=== PATIENT | male | born 1970 | race African-American/Black ===

== ENCOUNTER 2018-11-17 01:02 | Observation (INO) | payer OTHER ==
--- NOTE | 2018-11-17 01:58 | PDOC ---
History of Present Illness - General Chief Complaint: Chest Pain Stated Complaint: CHEST PAIN, ABDOMINAL PAIN Time Seen by Provider: 11/17/18 01:57 - History of Present Illness Initial Comments: 48yo M with no significant past medical history presenting with chest pain and abdominal pain. Patient reports the chest pain started around 12 midnight while he was sitting at rest. The pain is described as sharp and nonradiating, worsening to a 10/10 and now rated 8/10. No nausea, vomiting, or diaphoresis. Denies personal or family history of RI. He also reports diffuse abdominal pain that has gone on since . Patient endorses profuse diarrhea, about 20-30 episodes yesterday. He had fried chicken from a restaurant on . Denies urinary symptoms. Had a colonoscopy about ten years ago which was normal because his father and grandfather have colon cancer. Has not taken anything for his symptoms. No fevers, but endorses chills. Past History - Past Medical History Allergies/Adverse Reactions: Allergies Allergy/AdvReac Type Severity Reaction Status Date / Time aspirin Allergy Intermediate Hives Verified 11/17/18 03:04 Home Medications: Ambulatory Orders Cephalexin [Keflex] 500 mg PO Q12H 7 Days #14 capsule 11/18/18 RX: Elviteg/Cob/Emtri/Tenof Alafen [Genvoya (Non-Formulary)] 11/18/18 RX: Latanoprost 1 drop OU HS 11/18/18 RX: Latanoprost 0.005% Eye Drops [Xalatan 0.005% Eye Drops -] 1 drop OU HS drops 11/18/18 RX: Pilocarpine 1% [Pilostat 1% -] 1 drop OU HS drops 11/18/18 - Suicide/Smoking/Psychosocial Hx Smoking History: Never smoked Have you smoked in the past 12 months: No Information on smoking cessation initiated: No Hx Alcohol Use: No Drug/Substance Use Hx: No Review of Systems - Review of Systems Comments:: Constitutional: no fever, +chills HEENT: no throat pain, no dysphagia Cardiovascular: +chest pain, no palpitations Respiratory: +cough, no shortness of breath Gastrointestinal: +abdominal pain, no nausea,+diarrhea Genitourinary: no dysuria, no frequency Musculoskeletal: no myalgia, no arthralgia Skin: no rash, no itching Neurologic: no headache, no dizziness *Physical Exam - Vital Signs Last Vital Signs Temp Pulse Resp BP Pulse Ox 98.3 F 113 H 18 148/107 H 98 11/17/18 01:10 11/17/18 01:10 11/17/18 01:10 11/17/18 01:10 11/17/18 01:10 - Physical Exam Comments: General: Awake, alert, and fully oriented, in no acute distress Head: No signs of trauma Eyes: EOMI, sclera anicteric ENT: Moist mucus membranes Neck: Normal ROM, supple Lungs: Lungs clear, Normal breath sounds Cardio: Regular rhythm, S1 and S2 present Abdomen: Tender to palpation diffusely, most focal to suprapubic area. Soft, nondistended. No guarding, no rebound, no masses Extremities: Normal range of motion, Distal pulses present SKIN: Warm, Dry, normal turgor Neurologic: Cranial nerves II through XII grossly intact. Normal speech Moderate Sedation - Procedure Monitoring Vital Signs: Procedure Monitoring Vital Signs Temperature 98.3 F 11/17/18 01:10 Pulse Rate 113 H 11/17/18 01:10 Respiratory Rate 18 11/17/18 01:10 Blood Pressure 148/107 H 11/17/18 01:10 O2 Sat by Pulse Oximetry (%) 98 11/17/18 01:10 ED Treatment Course - LABORATORY CBC & Chemistry Diagram: 11/18/18 05:00 11/18/18 05:00 Medical Decision Making - Medical Decision Making 48yo M with no significant past medical history presenting with chest pain and abdominal pain. -DDX including but not limited to ACS, MSK, PNA, PTX -DDX including but not limited to gastroenteritis, food poisoning, UTI, pancreatitis, cholecystitis, hepatitis, diverticulitis, SBO -EKG: rate 113, QTc 452, Incomplete RBBB with RSR' -No leukocytosis or anemia, AQ=[id number], Tpn negative, Cr=1.5 elevated -UA with infection, 89 WBC, 2+ LE -Patient declined rectal exam -Tachycardic, hydrating with fluids -Treating diarrhea with flagyl and UTI with Ceftriaxone -Fluid hydration with 2L NS 11/17/18 06:12 -Patient endorses improvement in chest pain, now 0/10. No episodes of diarrhea while in the ED -Patient signed out to Dr. Asher 11/17/18 07:38 *DC/Admit/Observation/Transfer Diagnosis at time of Disposition: Chest pain, atypical, UTI (urinary tract infection), Gastroenteritis and colitis, viral - Discharge Dispostion Condition at time of disposition: Stable Decision to Admit order: Yes - Prescriptions - Referrals - Patient Instructions - Post Discharge Activity
[2018-11-17] MEDS ORDERED: ACETAMINOPHEN 1000 MG/100 ML VIAL (NON FORMULARY) IVPB ONE (02:47)
[2018-11-17] MEDS ORDERED: SODIUM CHLORIDE 1,000 ML IV STA ×2 (02:48→05:05)
[2018-11-17] MEDS ORDERED: MAG HYDROX/AL HYDROX/SIMETH 30 ML UNIT-DOSE CUP PO ONE (02:48)
[2018-11-17] MEDS ORDERED: FAMOTIDINE 20 MG/50 ML IVPB 20 MG/50 ML MG IVPB ONE (02:48)
[2018-11-17 03:06] LABS: BASO % 0.4 % (0-2.0); EOS % 0.6 % (0-4.5); HEMATOCRIT 36.3 % (32.4-45.2); HEMOGLOBIN 12.4 GM/dL (10.7-15.3); LYMPH % 18.3 % (8-40); MCH 30.6 pg (25.7-33.7); MEAN CELL VOLUME 89.8 fl (80-96); MEAN PLT VOLUME 7.8 fl (7.5-11.1); MONO % 8.7 % (3.8-10.2); PLATELET COUNT 193 K/MM3 (134-434); RBC 4.05 M/mm3 (3.60-5.2); RDW 14.1 % (11.6-15.6); WHITE BLOOD COUNT 6.1 K/mm3 (4.0-10.0)
--- NOTE | 2018-11-17 03:33 | PDOC ---
Attending Attestation - Resident Resident Name: PrincessRaina - ED Attending Attestation I have performed the following: I have examined & evaluated the patient, The case was reviewed & discussed with the resident, I agree w/resident's findings & plan - HPI HPI: 11/17/18 03:33 Pt comes with chest pain since midnight tonight; he has been having abd pain and diarrhea since thurs. when he ate [employer] and immediately felt ill, followed by diarrhea and abd pain. Pt never lost the abd pain and diarrhea. He has no fever and no chills. 11/17/18 03:51 Pt has CPK of 1278. 1st trop is negative He is being hydrated. But he will be admitted for his chest pain to the telemetry unit - Physicial Exam PE: 11/17/18 03:34 Normal exam. Agree with resident exam. - Medical Decision Making 11/17/18 03:35 Pt will have cardiac labs. 11/17/18 03:[address] abd pelvis will be sent. CXR pending. EKG is tachycardic. 11/17/18 04:27 Pt has a nitrite positive urine. He will be treated with ceftriaxone for the UTI ; given a dose of flagyl for the food poisoning and diarrhea 11/17/18 04:53 Pt will be admitted to the tele unit. 11/17/18 06:49 Pt not admitted by the night team, as they were busy; will be signed out to the day ER docs, who will sign out to the day hospitalists. There are no tele beds in house. 11/17/18 06:55 Pt has Chest pain; needs monitoring; diarrhea x 4 days with RHABDOMYOLYSIS; UTI ; Abdominal pain; No PO intake. He requires admission
[2018-11-17 03:39] LABS: ALBUMIN 3.8 g/dl (3.4-5.0); ALK PHOS 85 U/L (45-117); ANION GAP 8 MMOL/L (8-16); BILIRUBIN,TOTAL 0.6 mg/dL (0.2-1); BLOOD UREA NITROGEN 16 mg/dL (7-18); CALCIUM 8.7 mg/dL (8.5-10.1); CHLORIDE 103 mmol/L (98-107); CO2 27 mmol/L (21-32); CREATININE 1.5 mg/dL (0.55-1.3); GLUCOSE,RANDOM 105 mg/dL (74-106); LIPASE 135 U/L (73-393); POTASSIUM 3.9 mmol/L (3.5-5.1); SGOT/AST 71 U/L (15-37); SGPT/ALT 46 U/L (13-61); SODIUM 138 mmol/L (136-145); TOT PROT 7.4 g/dl (6.4-8.2)
[2018-11-17 03:57] LABS: URINE APPEARANCE SLCLOUDY; URINE BILIRUBIN NEGATIVE (<2.0 mg/dL); URINE COLOR YELLOW; URINE GLUCOSE (UA) NEGATIVE (NEGATIVE); URINE KETONE NEGATIVE (NEGATIVE); URINE LEUK ESTERASE 2+ (NEGATIVE); URINE NITRITE POSITIVE (NEGATIVE); URINE PROTEIN 2+ (NEGATIVE); URINE UROBILINOGEN NEGATIVE mg/dL (0.2-1.0)
[2018-11-17 04:02] LABS: EPI CELLS RARE /HPF (FEW); URINE BACTERIA MANY /hpf (NONE SEEN); URINE HYALINE CAST 1 /lpf; URINE MUCUS RARE
[2018-11-17] MEDS ORDERED: CEFTRIAXONE 1 GM in DEXTROSE 5%-WATER - 50 ML IVPB ONE (04:27)
[2018-11-17] MEDS ORDERED: CEFTRIAXONE 1 GM/50 ML BAG ONE (05:00)
--- NOTE | 2018-11-17 08:40 | EKG ---
Test Reason : Blood Pressure : / mmHG Vent. Rate : 113 BPM Atrial Rate : 113 BPM P-R Int : 166 ms QRS Dur : 096 ms QT Int : 330 ms P-R-T Axes : 073 013 022 degrees QTc Int : 452 ms SINUS TACHYCARDIA POSSIBLE LEFT ATRIAL ENLARGEMENT INCOMPLETE RIGHT BUNDLE BRANCH BLOCK BORDERLINE ECG NO PREVIOUS ECGS AVAILABLE Confirmed by ELIOT CARUSO MD ([id number]) on 11/17/2018 8:40:00 AM Referred By: Confirmed By:ELIOT CARUSO MD
[2018-11-17] MEDS ORDERED: SODIUM CHLORIDE 1,000 ML IV SCH (10:45)
--- NOTE | 2018-11-17 10:56 | HP ---
CHIEF COMPLAINT: Chest pain, diarrhea PCP: Dr. Froy Rolon HISTORY OF PRESENT ILLNESS: Patient is a 48 year old male with History of HIV (on Genvoya, last vital load in 2018 was undetectable), glaucom,a prior UTI presents with complaint of chest pain. Describes chest pain as sharp, localized to middle chest, nonradiating. Began with sudden onset while he was resting around 10PM last night, and resolved spontaneously upon presentation to ED today. He endorses palpitations associated with the chest pain. He denies associated shortness of breath, or worsening of chest pain with deep breaths. Patient does not endorse palliative or provocative features. He denies having similar symptoms in the past. Patient also endorses diarreha that has been ongoing since . He notes eating fried chicken ([facility]) and has been experiencing 10+ liquid brown bowel movements daily for the past three days. Today he notes the diarrhea is slightly improving with soft stools that are less liquid. Denies any jimmie red blood within the stool. He endorses chills, without subjective fever. Denies nausea, or vomiting. He is currently eating well without diminished appetite. He denies recent trauma, fall, loss of conciousness, strenuous exercise, steroid use. ER course was notable for: (1) EKG: sinus tachycardia at 113BPM, incomplete RBBB. Troponin 0.02 (2) CK 1278, CKMB 7.2 (3) UA 2+ protein, 1+ blood, 2+ leukocyte esterase, + nitirites, 89WBC, 2 RBC, many bacteria Recent Travel: PAST MEDICAL HISTORY: HIV, glaucoma, prior UTI PAST SURGICAL HISTORY: Denies Social History: Smoking: denies Alcohol: ocassionally 1-2 beers a week. Drugs: denies illicit drug use Works: kitchen senior sql server dba at [employer] Sexually active with men, uses condoms sometimes. Family History: Patient denies any cardiac family history Mother: Father: [place] Grandfather: [place] Allergies: Aspirin (hives) aspirin Allergy (Intermediate, Verified 11/17/18 03:04) Hives HOME MEDICATIONS: Home Medications Medication Instructions Recorded NK [No Known Home Medication] 11/17/18 REVIEW OF SYSTEMS CONSTITUTIONAL: Admits: chills, generalized weakness. Absent: fever, diaphoresis, loss of appetite, weight change HEENT: Absent: rhinorrhea, nasal congestion, throat pain, throat swelling, difficulty swallowing, mouth swelling, ear pain, eye pain, visual changes CARDIOVASCULAR: Admits: chest pain (resolved), palpitations (resolved). Absent: syncope, irregular heart rate, lightheadedness, peripheral edema RESPIRATORY: Absent: cough, shortness of breath, dyspnea with exertion, orthopnea, wheezing, stridor, hemoptysis GASTROINTESTINAL: Admits: diarrhea. Absent: abdominal pain, abdominal distension, nausea, vomiting , diarrhea, constipation, melena, hematochezia GENITOURINARY: Admts: urinary frequency. Absent: dysuria, urgency, hesitancy, hematuria, flank pain, genital pain, discharge MUSCULOSKELETAL: Absent: myalgia, arthralgia, joint swelling, back pain, neck pain SKIN: Absent: rash, itching, pallor NEUROLOGIC: Absent: headache, focal weakness or paresthesias, dizziness, unsteady gait, seizure, mental status changes, bladder or bowel incontinence PSYCHIATRIC: Absent: anxiety, depression, suicidal or homicidal ideation, hallucinations. PHYSICAL EXAMINATION Vital Signs - 24 hr 11/17/18 11/17/18 11/17/18 01:10 05:00 06:44 Temperature 98.3 F 98.6 F Pulse Rate 113 H Pulse Rate [ 89 85 Right Radial] Respiratory 18 16 18 Rate Blood Pressure 148/107 H Blood Pressure 139/93 140/95 [Right Arm] O2 Sat by Pulse 98 99 Oximetry (%) GENERAL: Awake, alert, and fully oriented, in no acute distress. HEAD: Normal with no signs of trauma. EYES: Conjunctiva injected B/L. Pupils equal, round and reactive to light, extraocular movements intact, sclera anicteric. EARS, NOSE, THROAT: Oropharynx clear without exudates. Moist mucous membranes. NECK: Supple without lymphadenopathy, or JVD LUNGS: Breath sounds equal, clear to auscultation bilaterally. No wheezes, and no crackles. No accessory muscle use. HEART: Regular rate and rhythm, normal S1 and S2 without murmur, rub or gallop. ABDOMEN: Soft, diffusely tender to deep palpation X4 quadrants, not distended. Normoactive bowel sounds X4 quadrants, no guarding, no rebound tenderness. No hepatomegaly palpated or percussed. MUSCULOSKELETAL: Normal range of motion at all joints. No CVA tenderness B/L UPPER EXTREMITIES: 2+ radial pulses B/L, warm, well-perfused. LOWER EXTREMITIES: 2+ dorsalis pedis pulses B/L, warm, well-perfused. No calf tenderness. No peripheral edema B/L. NEUROLOGICAL: Cranial nerves II-XII intact. Normal speech. strength 5/5 B/L upper and lower extremities B/L. PSYCHIATRIC: Cooperative. Good eye contact. Appropriate mood and affect. SKIN: Warm, dry. Laboratory Results - last 24 hr 11/17/18 11/17/18 11/17/18 03:00 03:00 03:40 WBC 6.1 RBC 4.05 Hgb 12.4 Hct 36.3 MCV 89.8 MCH 30.6 MCHC 34.0 RDW 14.1 Plt Count 193 MPV 7.8 Absolute Neuts (auto) 4.4 Neutrophils % 72.0 Lymphocytes % 18.3 Monocytes % 8.7 Eosinophils % 0.6 Basophils % 0.4 Nucleated RBC % 0 Sodium 138 Potassium 3.9 Chloride 103 Carbon Dioxide 27 Anion Gap 8 BUN 16 Creatinine 1.5 H Creat Clearance w eGFR 36.76 Random Glucose 105 Calcium 8.7 Total Bilirubin 0.6 AST 71 H ALT 46 Alkaline Phosphatase 85 Creatine Kinase 1278 H Creatine Kinase Index 0.5 CK-MB (CK-2) 7.2 H Troponin I 0.02 Total Protein 7.4 Albumin 3.8 Lipase 135 Urine Color Yellow Urine Appearance Slcloudy Urine pH 6.0 Ur Specific [place] 1.014 Urine Protein 2+ H Urine Glucose (UA) Negative Urine Ketones Negative Urine Blood 1+ H Urine Nitrite Positive Urine Bilirubin Negative Urine Urobilinogen Negative Ur Leukocyte Esterase 2+ H Urine WBC (Auto) 89 Urine RBC (Auto) 2 Ur Epithelial Cells Rare Urine Bacteria Many Hyaline Casts 1 Urine Mucus Rare ASSESSMENT/PLAN: Patient is a 48 year old male with History of HIV (on Genvoya, last vital load in 2018 was undetectable) presents with complaint of chest pain. Rule Out ACS -Chest pain atypical in presentation. Unlikely to be cardiac in origin. -EKG shows sinus tachycardia at 113BPM, incomplete RBBB. -Troponin 0.02. Follow Troponins -CKMB elevated at 7.2, however concurrently with CK 1278 and negative troponins -Telemetry monitoring -Cardiac ECHO -Cardiology consult (Dr. Martino) Gastroenteritis -Diarrhea likely secondary to viral gastroenteritis from fast food. -Follow stool cultures -Stool for ova and parasites -Stool for Cryptosporidium, Cylospora, Giardia, Isospora, Norovirus, Rotavirus -Elevation in CK likely secondary to infectious etiology. Will hydrate, and follow. -ID consult (Dr. Ibanez) Urinary tract infection -UA shows UA 2+ protein, 1+ blood, 2+ leukocyte esterase, + nitirites, 89WBC, 2 RBC, many bacteria -Pharmacy records note he has received Ciprofloxacin, and Macrobid within the past 6 months. -Patient received Ceftriaxone in ED -US kidney and bladder to evaluate for obstructive pathology -Rocephin 1 gram IV daily Acute kidney injury -BUN 16/ Cr 1.5. Unclear patient's baseline -Likely prerenal in etiology given patient's diarrhea over past three days. -IV normal saline at 125mL/ hour HIV -Patient endorses compliance with Genvoya- not carried at this facility -Truvada 1 tab PO daily -Tivicay 50mg PO BID -ID consult (Dr. Ibanez) appreciated. Glaucoma -Pilocarpine 1% drops 1 drop OU at bedtime -Latanoprost 0.005% drops 1 drop OU at bedtime FEN -IV normal saline at 125mL/ hour -Follow CMP -Regular diet Prophylaxis -Heparin 5000u subq TID Disposition -Telemetry observation Visit type - Emergency Visit Emergency Visit: Yes ED Registration Date: 11/17/18 Care time: The patient presented to the Emergency Department on the above date and was hospitalized for further evaluation of their emergent condition. - New Patient This patient is new to me today: Yes Date on this admission: 11/17/18 - Critical Care Critical Care patient: No
[2018-11-17] MEDS: PANTOPRAZOLE 40 MG TABLET (FP) PO SCH (11:27)
--- NOTE | 2018-11-17 11:49 | PN ---
Teaching Attending Note Name of Resident: Oc Valentino ATTENDING PHYSICIAN STATEMENT I saw and evaluated the patient. I reviewed the resident's note and discussed the case with the resident. I agree with the resident's findings and plan as documented. SUBJECTIVE: Patient is a 48 year old male with History of HIV (on Genvoya, last vital load in 2018 was undetectable) presents with complaint of chest pain. Describes chest pain as sharp, localized to middle chest, non radiating. Began with sudden onset while he was resting around 10PM last night, and resolved spontaneously upon presentation to ED today. He endorses palpitations associated with the chest pain. He denies associated shortness of breath, or worsening of chest pain with deep breaths. Patient does not endorse palliative or provocative features. He denies having similar symptoms in the past. Patient also endorses diarreha that has been ongoing since . He notes eating fried chicken ([employer]) and has been experiencing 10+ liquid brown bowel movements daily for the past three days. Today he notes the diarrhea is slightly improving with soft stools that are less liquid. Denies any jimmie red blood within the stool. He endorses chills, without subjective fever. Denies nausea, or vomiting. OBJECTIVE: Heent nad neck supple lungs clear abd he has defuse tenderness but no rebound tenderness neuro alert and awake cardiac has normal cardiac heart sounds Laboratory Results - last 24 hr 11/17/18 11/17/18 11/17/18 03:00 03:00 03:40 WBC 6.1 RBC 4.05 Hgb 12.4 Hct 36.3 MCV 89.8 MCH 30.6 MCHC 34.0 RDW 14.1 Plt Count 193 MPV 7.8 Absolute Neuts (auto) 4.4 Neutrophils % 72.0 Lymphocytes % 18.3 Monocytes % 8.7 Eosinophils % 0.6 Basophils % 0.4 Nucleated RBC % 0 Sodium 138 Potassium 3.9 Chloride 103 Carbon Dioxide 27 Anion Gap 8 BUN 16 Creatinine 1.5 H Creat Clearance w eGFR 36.76 Random Glucose 105 Calcium 8.7 Total Bilirubin 0.6 AST 71 H ALT 46 Alkaline Phosphatase 85 Creatine Kinase 1278 H Creatine Kinase Index 0.5 CK-MB (CK-2) 7.2 H Troponin I 0.02 Total Protein 7.4 Albumin 3.8 Lipase 135 Urine Color Yellow Urine Appearance Slcloudy Urine pH 6.0 Ur Specific [place] 1.014 Urine Protein 2+ H Urine Glucose (UA) Negative Urine Ketones Negative Urine Blood 1+ H Urine Nitrite Positive Urine Bilirubin Negative Urine Urobilinogen Negative Ur Leukocyte Esterase 2+ H Urine WBC (Auto) 89 Urine RBC (Auto) 2 Ur Epithelial Cells Rare Urine Bacteria Many Hyaline Casts 1 Urine Mucus Rare Current Medications Heparin Sodium (Porcine) (Heparin -) 5,000 unit SQ Q8H-IV YARIEL Sodium Chloride (Normal Saline -) 1,000 mls @ 125 mls/hr IV ASDIR YARIEL Last Admin: 11/17/18 11:27 Dose: 125 mls/hr Latanoprost (Xalatan 0.005% Eye Drops -) 1 drop OU HS YARIEL Pantoprazole Sodium (Protonix -) 40 mg PO DAILY YARIEL Last Admin: 11/17/18 11:27 Dose: 40 mg Pilocarpine HCl (Pilostat 1% -) 1 drop OU HS YARIEL ASSESSMENT AND PLAN: diarrhea probably due to food poisoning and will start on iv fluids and stool studies and ID eval bc he is HIV positive chest pain probably due to gastritis will stat on protonox and will do serial enzymes and cardiac consult for high cpk probably due to dehydration but will f/u possible uti he got abx in er will order sono for w/u and prestidigitator abx iv id consult
--- NOTE | 2018-11-17 12:26 | CON.CARD ---
Consult Consult Specialty:: Cardiology Referred by:: Snehal Grace MD Reason for Consultation:: Chest pain - History of Present Illness Chief Complaint: Chest pain History of Present Illness: Patient is a 48 year old male with History of HIV (on Genvoya, last vital load in 2018 was undetectable), glaucoma prior UTI presents with complaint of non- exertional chest pain. Describes chest pain as sharp, localized to middle chest , nonradiating. Began with sudden onset while he was resting around 10PM last night, and resolved spontaneously upon presentation to ED today. He endorses palpitations associated with the chest pain. He denies associated shortness of breath, or worsening of chest pain with deep breaths. Patient does not endorse palliative or provocative features. He denies having similar symptoms in the past. Patient also endorses diarrhea that has been ongoing since . He notes eating fried chicken ([facility]) and has been experiencing 10+ liquid brown bowel movements daily for the past three days. Today he notes the diarrhea is slightly improving with soft stools that are less liquid. Denies any jimmie red blood within the stool. He endorses chills, without subjective fever. Denies nausea, or vomiting. He is currently eating well without diminished appetite. ER course was notable for: (1) EKG: sinus tachycardia at 113BPM, incomplete RBBB. Troponin 0.02 (2) CK 1278, CKMB 7.2 (3) UA 2+ protein, 1+ blood, 2+ leukocyte esterase, + nitirites, 89WBC, 2 RBC, many bacteria - History Source History Provided By: Patient Limitations to Obtaining History: No Limitations - Alcohol/Substance Use Hx Alcohol Use: No - Smoking History Smoking history: Never smoked Have you smoked in the past 12 months: No Home Medications - Allergies Allergies/Adverse Reactions: Allergies Allergy/AdvReac Type Severity Reaction Status Date / Time aspirin Allergy Intermediate Hives Verified 11/17/18 03:04 - Home Medications Home Medications: Ambulatory Orders NK [No Known Home Medication] 11/17/18 Review of Systems - Review of Systems Cardiovascular: reports: Chest Pain Vital Signs: Vital Signs Temperature 98.6 F 11/17/18 06:44 Pulse Rate 85 11/17/18 06:44 Respiratory Rate 18 11/17/18 06:44 Blood Pressure 140/95 11/17/18 06:44 O2 Sat by Pulse Oximetry (%) 99 01/13/19 05:00 Constitutional: Yes: No Distress, Calm, Thin Neck: Yes: Supple Respiratory: Yes: Regular, CTA Bilaterally Gastrointestinal: Yes: Normal Bowel Sounds, Soft Cardiovascular: Yes: Regular Rate and Rhythm JVD: No Carotid Bruit: No Heart Sounds: Yes: S1, S2 Edema: No - Other Data Labs, Other Data: CBC, BMP 11/17/18 03:00 11/17/18 03:00 Troponin, BNP 11/17/18 03:00 Troponin I 0.02 Troponin, BNP 11/17/18 03:[address] @ 113, LAE, IRBBB Imaging - Results Chest X-ray: Report Reviewed (NAD) Ultrasound: Report Reviewed (No hydro) Problem List - Problems (1) Chest pain, atypical Code(s): R07.89 - OTHER CHEST PAIN (2) Gastroenteritis and colitis, viral Code(s): A08.4 - VIRAL INTESTINAL INFECTION, UNSPECIFIED (3) ISAK (acute kidney injury) Code(s): N17.9 - ACUTE KIDNEY FAILURE, UNSPECIFIED Assessment/Plan 1. Atypical chest pain 2. Diarrhea with hypovolemia likely secondary to viral gastroenteritis from fast food 3. Sinus tachycardia 4. UTI 5. Pre-renal ISAK 6. HIV on HAART P:1. Ruling out for OK, f/u echo to assess ventricular and valve fxn 2. Empiric protonix, abx course per ID 3. Monitor renal recovery with IV hydration 4. Stress testing to exclude structural heart disease may be performed as outpatient 5. Thank you for consultative opportunity
--- NOTE | 2018-11-17 15:13 | PN ---
Progress Note (short form) - Note Progress Note: ID consult dictated imp/reccd chest pain resolving gastroenteritis stable hiv possible UTI- sono with evidence of cystitis/obstruction agree with truvada/tivicay as swap for genvoya while patient is in hospital stools are formed now management per cardiology he is hoping to go back to work tomorrow has outpt hiv f/[facility] at [facility] shoud be seen by urology as well as outpt on ceftriaxone can transition to po antibioitcs in am -keflex with f/u of urine cultue (won't be ready in am) Problem List - Problems (1) Chest pain, atypical Code(s): R07.89 - OTHER CHEST PAIN (2) Gastroenteritis Code(s): K52.9 - NONINFECTIVE GASTROENTERITIS AND COLITIS, UNSPECIFIED (3) HIV disease Code(s): B20 - HUMAN IMMUNODEFICIENCY VIRUS [HIV] DISEASE (4) UTI (urinary tract infection) Code(s): N39.0 - URINARY TRACT INFECTION, SITE NOT SPECIFIED
[2018-11-17] MEDS ORDERED: HEPARIN NA (PORCINE) 5,000 UNITS/ML 1ML VIAL SQ SCH (18:00)
--- NOTE | 2018-11-17 18:25 | CONS ---
DATE OF CONSULTATION: 11/17/2018 REQUESTED BY: Hospitalist service This is a 48-year-old man who was admitted from home, who presented to the emergency room early this morning with complaints of chest pain and shortness of breath. The chest pain started around midnight and would not go away so he decided to come to the ER. To come to the ER, he has to walk up the hill on [facility], which he did with great difficulty. He reports he had had shortness of breath, and he presented for this. He also notes that he ate at [facility] [employer] on night, and since then, he had profuse diarrhea that has been nonbloody. The diarrhea itself resolved. This morning he had a formed stool. He denies any fevers or chills. He denies any nausea or vomiting. Currently his chest pain has resolved. He is allergic to ASPIRIN, which gives him hives. He takes Genvoya as an outpatient. Past medical history is notable for stable HIV disease. He does not know his hepatitis C status. He denies a history of TB in the past. Family history is noncontributory. SOCIAL HISTORY: He works at [employer]. He was in a recently-ended monogamous relationship. There is no history of any travel. He is originally from [place]. REVIEW OF SYSTEMS: Notable for the chest pain and palpitations that have resolved. He has had no vomiting or blood in his stools. He now has soft bowel movements. He does not have any complaints of dysuria but does note urinary frequency. PHYSICAL EXAMINATION: General: He is a pleasant man, awake and alert. Vital Signs: Temperature is 98.6. Pulse is 72. Respiratory rate is 16. Blood pressure is 138/82. He is saturating 99% on room air. HEENT: He is normocephalic. His eyes are anicteric. Neck: Supple. Lungs: Clear to auscultation. Heart: Regular rate and rhythm. Abdomen: Soft, nontender. Extremities: Without edema. White count is 6, hemoglobin 12.4, platelets 193. BUN 16, creatinine 1.5. Urinalysis has 2+ leukocyte esterase with 89 white cells. Chest x-ray done in the emergency room shows no acute chest pathology. He had a renal and bladder sonogram, which were notable for nonspecific urinary bladder wall thickening. In summary, this is a 48-year-old man admitted for chest pain, who has resolving gastroenteritis, stable HIV, he reports his viral load is undetectable, possible UTI, sono with evidence of cystitis and obstruction. I would agree with Srini as a swap for his Genvoya while he is in the hospital, as he did not bring his medications. Chest pain management per Cardiology. He is hoping to go to work tomorrow. He has outpatient follow up at [facility], which is longstanding. He should be seen by Urology as well. He has been started on ceftriaxone and can hopefully transition to p.o. antibiotics in a.m. Would suggest Keflex as long as we follow up his culture results, as they probably will not be ready tomorrow. ARACELI LUU M.D. JAGDEEP/[id number]
[2018-11-17] MEDS ORDERED: PT OWN MED DRAWER 7, Y5N ONE (21:48)
[2018-11-17] MEDS: DOLUTEGRAVIR SODIUM 50 MG TABLET (NON-FORMULARY) PO SCH (21:52)
[2018-11-17] MEDS: EMTRICITABINE 200MG/TENOFOVIR 300MG PO SCH (21:52)
[2018-11-17] MEDS ORDERED: PILOCARPINE 1% OPHTHALMIC SOLUTION 15 ML BOTTLE OU SCH (22:00)
[2018-11-17] MEDS ORDERED: LATANOPROST 0.005% OPHTH SOLN 2.5ML BOTTLE OU SCH (22:00)
[2018-11-18 01:39] VITALS: BMI 24.2
[2018-11-18] MEDS ORDERED: HEPARIN NA (PORCINE) 5,000 UNITS/ML 1ML VIAL SQ SCH (06:00)
[2018-11-18 06:30] LABS: HEMATOCRIT 36.6 % (35.4-49); HEMOGLOBIN 11.5 GM/dL (11.7-16.9); MCH 28.9 pg (25.7-33.7); MCHC 31.4 g/dl (32.0-35.9); MEAN CELL VOLUME 92.2 fl (80-96); MEAN PLT VOLUME 8.3 fl (7.5-11.1); PLATELET COUNT 185 K/MM3 (134-434); RBC 3.97 M/mm3 (4.00-5.60); RDW 13.9 % (11.9-15.9); WHITE BLOOD COUNT 4.4 K/mm3 (4.0-10.0)
[2018-11-18 07:10] LABS: ALBUMIN 3.3 g/dl (3.4-5.0); ALK PHOS 80 U/L (45-117); ANION GAP 6 MMOL/L (8-16); BILIRUBIN,TOTAL 0.6 mg/dL (0.2-1); BLOOD UREA NITROGEN 11 mg/dL (7-18); CALCIUM 8.3 mg/dL (8.5-10.1); CHLORIDE 106 mmol/L (98-107); CO2 28 mmol/L (21-32); CREATININE 1.2 mg/dL (0.55-1.3); GLUCOSE,RANDOM 91 mg/dL (74-106); MAGNESIUM 2.3 mg/dL (1.8-2.4); PHOSPHOROUS 3.1 mg/dL (2.5-4.9); POTASSIUM 3.7 mmol/L (3.5-5.1); SGOT/AST 42 U/L (15-37); SGPT/ALT 36 U/L (13-61); SODIUM 140 mmol/L (136-145); TOT PROT 6.7 g/dl (6.4-8.2)
[2018-11-18] MEDS ORDERED: PT OWN MED DRAWER 7, Y5N ONE (08:56)
[2018-11-18] MEDS ORDERED: cefTRIAXone SODIUM 1 GM VIAL ONE (08:56)
[2018-11-18] MEDS ORDERED: DEXTROSE 5%-WATER - 50 ML IVPB ONE (08:57)
[2018-11-18] MEDS: PANTOPRAZOLE 40 MG TABLET (FP) PO SCH (09:15)
[2018-11-18] MEDS: DOLUTEGRAVIR SODIUM 50 MG TABLET (NON-FORMULARY) PO SCH (09:19)
[2018-11-18] MEDS: EMTRICITABINE 200MG/TENOFOVIR 300MG PO SCH (09:19)
--- NOTE | 2018-11-18 09:49 | EKG ---
Test Reason : Blood Pressure : / mmHG Vent. Rate : 076 BPM Atrial Rate : 076 BPM P-R Int : 170 ms QRS Dur : 094 ms QT Int : 382 ms P-R-T Axes : 062 017 015 degrees QTc Int : 429 ms NORMAL SINUS RHYTHM NORMAL ECG WHEN COMPARED WITH ECG OF 17-NOV-2018 01:34, VENT. RATE HAS DECREASED BY 37 BPM Confirmed by JUANITA COLVIN MD ([id number]) on 11/18/2018 9:49:22 AM Referred By: Confirmed By:JUANITA COLVIN MD
[2018-11-18] MEDS ORDERED: CEFTRIAXONE 1 GM in DEXTROSE 5%-WATER - 50 ML IVPB SCH (10:00)
--- NOTE | 2018-11-18 10:35 | ECHO ---
Name: DANIELA BOONE Exam:Adult Echocardiogram Study Date: 11/18/2018 09:51 AM Age: 48 yrs Reason For Study: Chest pain Height: 69 in Weight: 175 lb BSA: 2.0 m2 BP: 9/ mmHg MMode/2D Measurements & Calculations IVSd: 0.99 cm ACS: 1.8 cm LVIDd: 3.8 cm LVIDs: 2.6 cm LVPWd: 1.4 cm EDV(Teich): 62.6 ml ESV(Teich): 24.7 ml Doppler Measurements & Calculations Med Peak E' Elia: 9.5 cm/sec Lat Peak E' Elia: 9.7 cm/sec Procedure A complete two-dimensional transthoracic echocardiogram was performed (2D, M-mode, Doppler and color flow Doppler). Left Ventricle The left ventricle is normal in size. Left ventricular systolic function is normal. Ejection Fraction = 55- 60%. No regional wall motion abnormalities noted. Right Ventricle The right ventricle is normal size. The right ventricular systolic function is normal. RV systolic TD I is 18 cm/s. Atria The left atrial size is normal. Right atrial size is normal. Mitral Valve There is mild mitral annular calcification. There is mild mitral regurgitation. Tricuspid Valve The tricuspid valve is normal in structure and function. There is mild tricuspid regurgitation. Aortic Valve The aortic valve is normal in structure and function. No aortic regurgitation is present. Pulmonic Valve The pulmonic valve is not well visualized. Mild pulmonic valvular regurgitation. Great Vessels The aortic root is normal size. Pericardium/Pleura There is no pericardial effusion. Interpretation Summary The left ventricle is normal in size. Left ventricular systolic function is normal. No regional wall motion abnormalities noted. Ejection Fraction = 55-60%. The right ventricular systolic function is normal. The left atrial size is normal. Right atrial size is normal. There is mild mitral annular calcification. There is mild mitral regurgitation. There is mild tricuspid regurgitation. Mild pulmonic valvular regurgitation. There is no pericardial effusion. Previous study is not available for comparison Jaime Martino MD 11/18/2018 10:34 AM
--- NOTE | 2018-11-18 12:19 | DS ---
Physical Exam: SUBJECTIVE: Patient seen and examined at bedside this morning. He endorses no liquid bowel movements overnight. Denies fevers, chills, shortness of breath, chest pain, palpitations, abdominal pain, nausea, vomiting. He states that he must go home today, as he has started a new job and must be on time. OBJECTIVE: Vital Signs Period Temp Pulse Resp BP Sys/Wolfe Pulse Ox Last 24 Hr 97.7 F-98.8 F 78-83 16-18 132-159/49-86 97-99 PHYSICAL EXAM GENERAL: Awake, alert, and fully oriented, in no acute distress. HEAD: Normal with no signs of trauma. EYES: Conjunctiva injected B/L. Pupils equal, round and reactive to light, extraocular movements intact, sclera anicteric. EARS, NOSE, THROAT: Oropharynx clear without exudates. Moist mucous membranes. NECK: Supple without lymphadenopathy, or JVD LUNGS: Breath sounds equal, clear to auscultation bilaterally. No wheezes, and no crackles. No accessory muscle use. HEART: Regular rate and rhythm, normal S1 and S2 without murmur, rub or gallop. ABDOMEN: Soft, nontender to light and deep palpation X4 quadrants, not distended. Normoactive bowel sounds X4 quadrants, no guarding, no rebound tenderness. No hepatomegaly palpated or percussed. MUSCULOSKELETAL: Normal range of motion at all joints. No CVA tenderness B/L UPPER EXTREMITIES: 2+ radial pulses B/L, warm, well-perfused. LOWER EXTREMITIES: 2+ dorsalis pedis pulses B/L, warm, well-perfused. No calf tenderness. No peripheral edema B/L. NEUROLOGICAL: Cranial nerves II-XII intact. Normal speech. strength 5/5 B/L upper and lower extremities B/L. PSYCHIATRIC: Cooperative. Good eye contact. Appropriate mood and affect. SKIN: Warm, dry. LABS Laboratory Results - last 24 hr 11/17/18 11/17/18 11/17/18 12:45 20:45 20:45 WBC RBC Hgb Hct MCV MCH MCHC RDW Plt Count MPV Sodium Potassium Chloride Carbon Dioxide Anion Gap BUN Creatinine Creat Clearance w eGFR Random Glucose Calcium Phosphorus Magnesium Total Bilirubin AST ALT Alkaline Phosphatase Creatine Kinase 931 H 733 H Creatine Kinase Index 0.5 Cancelled CK-MB (CK-2) 5.4 H Cancelled Cancelled Troponin I 0.02 0.02 Total Protein Albumin TSH 11/18/18 11/18/18 05:00 05:00 WBC 4.4 RBC 3.97 L Hgb 11.5 L Hct 36.6 MCV 92.2 MCH 28.9 MCHC 31.4 L RDW 13.9 Plt Count 185 MPV 8.3 Sodium 140 Potassium 3.7 Chloride 106 Carbon Dioxide 28 Anion Gap 6 L BUN 11 Creatinine 1.2 Creat Clearance w eGFR > 60 Random Glucose 91 Calcium 8.3 L Phosphorus 3.1 Magnesium 2.3 Total Bilirubin 0.6 AST 42 H ALT 36 Alkaline Phosphatase 80 Creatine Kinase 547 H Creatine Kinase Index 0.4 CK-MB (CK-2) 2.7 Troponin I Total Protein 6.7 Albumin 3.3 L TSH 1.35 HOSPITAL COURSE: Date of Admission:11/17/18 Date of Discharge: 11/18/18 Patient is a 48 year old male with history of HIV (on Genvoya, last vital load in 2018 was undetectable), glaucoma who presents with complaint of chest pain. EKG shows sinus tachycardia at 113BPM, incomplete RBBB. Troponins negative X3. CKMB was elevated at 7.2 upon admission, however concurrently with CK 1278 and negative troponins. Patient was hydrated with IV normal saline. Telemetry monitoring showed no acute recorded events. Diarrhea noted likely secondary to viral gastroenteritis, which resolved during hospitalization. Stool cultures were not obtained as patient did not have further bowel movement while hospitalized. UA showed 2+ protein, 1+ blood, 2+ leukocyte esterase, + nitirites , 89WBC, 2 RBC, many bacteria concerning for UTI. Patient was started on Ceftriaxone. Renal, bladder US showed diffuse nonspecific thickening urinary bladder. Equivocal increased right renal cortical echogenicity noted. Prostate mildly enlarged. Discharged to continue home medications, and to continue Keflex for 7 days. Provided referral to primary care physician, urologist, and machine specialist for follow up. Minutes to complete discharge: 35 Discharge Summary Reason For Visit: RHABDOMYOLYSIS,CHEST PAIN Current Active Problems ISAK (acute kidney injury) (Acute) Chest pain, atypical (Acute) Gastroenteritis (Acute) Gastroenteritis and colitis, viral (Acute) HIV disease (Acute) UTI (urinary tract infection) (Acute) Condition: Stable - Instructions Diet, Activity, Other Instructions: You were admitted to the hospital with chest pain, and diarrhea -both of which have resolved. You were evaluated by the machine specialist, and had an echocardiogram performed. You will follow up with the machine specialist as outpatient. You were found to have a urinary tract infection, and were treated with antibiotics. Your diarrhea has resolved since hospital admission. Abstain from eating raw or undercooked foods. It is important that you remain adequately hydrated. Drink plenty of water. Follow up with your primary care physician within two- three days after discharge. Discuss with your primary care physician regarding a Urologist referral to evaluate for your urinary tract infections. A referral has been provided for you with Dr. Perez for within one week of discharge. Follow up with machine specialist Dr. Watts within one week after discharge. Continue taking your home medications You will continue taking antibiotic (Keflex) 500mg every 12 hours for the next 7 days. Return to the nearest Emergency Department if you experience any fevers, chills , shortness of breath, chest pain, palpitations, abdominal pain, nausea, vomiting. If you experience continued diarrhea, or blood with bowel movements, you will need to return to emergency department for stool studies, and further workup. Referrals: Josh Perez MD [Staff Physician] - ON STAFF,NOT [Primary Care Provider] - Mendoza Watts MD [Staff Physician] - Disposition: HOME - Home Medications Comprehensive Discharge Medication List: Ambulatory Orders Cephalexin [Keflex] 500 mg PO Q12H 7 Days #14 capsule 11/18/18 Elviteg/Cob/Emtri/Tenof Alafen [Genvoya (Non-Formulary)] 11/18/18 Latanoprost 1 drop OU HS 11/18/18 Latanoprost 0.005% Eye Drops [Xalatan 0.005% Eye Drops -] 1 drop OU HS drops Pilocarpine 1% [Pilostat 1% -] 1 drop OU HS drops 11/18/18 This patient is new to me today: No Emergency Visit: Yes ED Registration Date: 11/17/18 Care time: The patient presented to the Emergency Department on the above date and was hospitalized for further evaluation of their emergent condition. Critical Care patient: No - Discharge Referral Referred to [facility] No
[2018-11-18 13:03] VITALS: BP 145/97; PULSE 90; TEMP 97.8
--- NOTE | 2018-11-18 13:09 | PN ---
Progress Note, Physician History of Present Illness: Patient is a 48 year old male with History of HIV (on Genvoya, last vital load in 2018 was undetectable), glaucoma prior UTI presents with complaint of non- exertional chest pain. Describes chest pain as sharp, localized to middle chest , nonradiating. Began with sudden onset while he was resting around 10PM last night, and resolved spontaneously upon presentation to ED today. He endorses palpitations associated with the chest pain. He denies associated shortness of breath, or worsening of chest pain with deep breaths. Patient does not endorse palliative or provocative features. He denies having similar symptoms in the past. Patient also endorses diarrhea that has been ongoing since . He notes eating fried chicken ([facility]) and has been experiencing 10+ liquid brown bowel movements daily for the past three days. Today he notes the diarrhea is slightly improving with soft stools that are less liquid. Denies any jimmie red blood within the stool. He endorses chills, without subjective fever. Denies nausea, or vomiting. He is currently eating well without diminished appetite. ER course was notable for: (1) EKG: sinus tachycardia at 113BPM, incomplete RBBB. Troponin 0.02 (2) CK 1278, CKMB 7.2 (3) UA 2+ protein, 1+ blood, 2+ leukocyte esterase, + nitirites, 89WBC, 2 RBC, many bacteria - Current Medication List Current Medications: Active Medications Emtricitabine/Tenofovir (Truvada) 1 tab PO DAILY [facility] Last Admin: 11/18/18 09:19 Dose: Not Given Heparin Sodium (Porcine) (Heparin -) 5,000 unit SQ TID [facility] Last Admin: 11/18/18 05:21 Dose: 5,000 unit Sodium Chloride (Normal Saline -) 1,000 mls @ 125 mls/hr IV ASDIR [facility] Last Admin: 11/17/18 11:27 Dose: 125 mls/hr Ceftriaxone Sodium 1 gm/ (Dextrose) 50 mls @ 100 mls/hr IVPB DAILY [facility] Last Admin: 11/18/18 09:16 Dose: 100 mls/hr Latanoprost (Xalatan 0.005% Eye Drops -) 1 drop OU HS [facility] Last Admin: 11/17/18 21:55 Dose: Not Given Pantoprazole Sodium (Protonix -) 40 mg PO DAILY [facility] Last Admin: 11/18/18 09:15 Dose: 40 mg Pilocarpine HCl (Pilostat 1% -) 1 drop OU HS [facility] Last Admin: 11/17/18 21:55 Dose: Not Given - Objective Vital Signs: Vital Signs Temperature 97.8 F 11/18/18 12:00 Pulse Rate 90 11/18/18 12:00 Respiratory Rate 18 11/18/18 12:00 Blood Pressure 145/97 11/18/18 12:00 O2 Sat by Pulse Oximetry (%) 97 11/18/18 12:00 Labs: CBC, BMP 11/18/18 05:00 11/18/18 05:00 Problem List - Problems (1) Chest pain, atypical Code(s): R07.89 - OTHER CHEST PAIN (2) Gastroenteritis and colitis, viral Code(s): A08.4 - VIRAL INTESTINAL INFECTION, UNSPECIFIED (3) ISAK (acute kidney injury) Code(s): N17.9 - ACUTE KIDNEY FAILURE, UNSPECIFIED Assessment/Plan 11/18/2017 Echo: Normal LV and RV size and fxn, normal atrial sizes, mild MR, TR , CA 1. Atypical chest pain 2. Diarrhea with hypovolemia likely secondary to viral gastroenteritis from fast food 3. Sinus tachycardia since resolved 4. UTI 5. Pre-renal ISAK improved 6. HIV on HAART P:1. Ruled out for IA 2. Empiric protonix, complete abx course per ID 3. Noted renal recovery with IV hydration 4. Stress testing to exclude structural heart disease may be performed as outpatient
--- NOTE | 2018-11-18 14:30 | PN ---
Teaching Attending Note Name of Resident: Oc Valentino ATTENDING PHYSICIAN STATEMENT I saw and evaluated the patient. I reviewed the resident's note and discussed the case with the resident. I agree with the resident's findings and plan as documented. SUBJECTIVE: Feels well - no more chest discomfort. No cough/sputum/hemoptysis. No fever/chills. No more diarrhea. No abdominal pain. OBJECTIVE: Afebrile/Hemodynamically Stable Last Vital Signs Temp Pulse Resp BP Pulse Ox 97.8 F 90 18 145/97 97 11/18/18 12:00 11/18/18 12:00 11/18/18 12:00 11/18/18 12:00 11/18/18 12:00 HEENT - Atraumatic, Normocephalic Heart - S1, S2, RRR Lungs - clear to auscultation, no crackles/wheeze Abdomen - Soft, non-tender. Bowel Sounds normal. Extremities - no edema. No calf tenderness Laboratory Results - last 24 hr 11/17/18 11/17/18 11/17/18 12:45 20:45 20:45 WBC RBC Hgb Hct MCV MCH MCHC RDW Plt Count MPV Sodium Potassium Chloride Carbon Dioxide Anion Gap BUN Creatinine Creat Clearance w eGFR Random Glucose Calcium Phosphorus Magnesium Total Bilirubin AST ALT Alkaline Phosphatase Creatine Kinase 931 H 733 H Creatine Kinase Index 0.5 Cancelled CK-MB (CK-2) 5.4 H Cancelled Cancelled Troponin I 0.02 0.02 Total Protein Albumin TSH 11/18/18 11/18/18 05:00 05:00 WBC 4.4 RBC 3.97 L Hgb 11.5 L Hct 36.6 MCV 92.2 MCH 28.9 MCHC 31.4 L RDW 13.9 Plt Count 185 MPV 8.3 Sodium 140 Potassium 3.7 Chloride 106 Carbon Dioxide 28 Anion Gap 6 L BUN 11 Creatinine 1.2 Creat Clearance w eGFR > 60 Random Glucose 91 Calcium 8.3 L Phosphorus 3.1 Magnesium 2.3 Total Bilirubin 0.6 AST 42 H ALT 36 Alkaline Phosphatase 80 Creatine Kinase 547 H Creatine Kinase Index 0.4 CK-MB (CK-2) 2.7 Troponin I Total Protein 6.7 Albumin 3.3 L TSH 1.35 ASSESSMENT AND PLAN: 48 year old male with HIV (on Genvoya, last viral load undetectable 2018), presented with chest pain, sharp, localized at lower sternal region, along with several dayn history of non=bloody diarrhea and abdominal discomfort, all currently resolved. 1. Viral Gastroenteritis - resolved. Oral fluid intake encouraged. Afebrile/Hemodynamically Stable. Symptomatically improved. 2. Chest Pain, atypical. TropI neg x 3. No acute changes on ECG. Echo - essentially normal. Evaluated by Cardiology - for out-patient Stress Test 3. ISAK sec to dehydration due to diarrhea, resolved with IV hydration. Rebal US - no obstruction. 4. HIV - Continue HAART. 5. UTI - UCx positive for NLFGNB - will discharge on Cephalosporin (given bladder wall changes on imaging) with PCP follow up for Urology referral. Likely needs cystoscopy due to bladder wall thickening on Bladder US. Patient insists on leaving today as he wants to attend his new job at 2pm. No stool samples produced since admission for testing. He is medically stable for discharge.
== END 2018-11-18 13:09 | disposition home or self-care (01) ==
LOC: EDSEX 01:02 → JER 01:02 → JERBED 08:12 → J4S 20:08
PROVIDERS: ADMIT Internal Medicine
PROC: 3E03329 Introduction of Other Anti-infective into Peripheral Vein, Percutaneous Approach (ICD-10-PCS; principal; 2018-11-17)
PROC: 3E033NZ Introduction of Analgesics, Hypnotics, Sedatives into Peripheral Vein, Percutaneous Approach (ICD-10-PCS; 2018-11-17)
PROC: 3E013GC Introduction of Other Therapeutic Substance into Subcutaneous Tissue, Percutaneous Approach (ICD-10-PCS; 2018-11-17)
DX: R07.89 Other chest pain (principal); N39.0 Urinary tract infection, site not specified; A08.4 Viral intestinal infection, unspecified; Z21 Asymptomatic human immunodeficiency virus [HIV] infection status; H40.9 Unspecified glaucoma; N17.9 Acute kidney failure, unspecified; R19.7 Diarrhea, unspecified; R00.0 Tachycardia, unspecified; M62.82 Rhabdomyolysis; Z88.6 Allergy status to analgesic agent
CPT/HCPCS: 36415; 71046-TC-FY; 76775-TC; 76856-TC; 80053; 81003; 81015; 82550; 82553; 83690; 83735; 84100; 84443; 84484; 85025; 85027; 87086; 87186; 93005; 93010; 93306-TC; 96365; 96367; 96372; 96375; 99285-25; G0378; J0131; J1644; J7030

== ENCOUNTER 2019-05-13 18:58 | Emergency (ER) | payer OTHER ==
[2019-05-13 19:09] VITALS: BP 143/90; PULSE 72; TEMP 98.2; BMI 29.5
--- NOTE | 2019-05-13 19:09 | PDOC ---
Rapid Medical Evaluation Time Seen by Provider: 05/13/19 19:04 Medical Evaluation: Allergies Allergy/AdvReac Type Severity Reaction Status Date / Time aspirin Allergy Intermediate Hives Verified 11/17/18 03:04 05/13/19 19:04 Pt c/o: rt elbow pain x 1 month, no injury, but has exertional job Pt on brief exam: tender over lat epicondyle Pt ordered for: none Pt to proceed to the ED Discharge Disposition - Diagnosis Elbow pain, left, Lateral epicondylitis of elbow - Discharge Dispostion Disposition: HOME Condition at time of disposition: Stable - Prescriptions Prescriptions: Ibuprofen [Motrin -] 600 mg PO TID #30 tablet - Referrals Referrals: Emmett Ferris DO [Staff Physician] - - Patient Instructions Printed Discharge Instructions: Lateral Epicondylitis, DI for Lateral Epicondylitis (Tennis Elbow) Additional Instructions: Motrin as prescribed. One tablet 3 times a day with food. Discontinue the medication if it bothers her stomach. Please wear the wrist splint as directed he should wear it all day sleep and it and only remove it for hygiene. Follow- up with orthopedic surgery in 1-2 days without fail for further evaluation and treatment options and return to the emergency room should symptoms worsen. - Post Discharge Activity
--- NOTE | 2019-05-13 19:24 | PDOC ---
History of Present Illness - General Chief Complaint: Pain, Acute Stated Complaint: RT ARM PAIN Time Seen by Provider: 05/13/19 19:04 - History of Present Illness Initial Comments: 05/13/19 19:22 48-year-old male without comorbidities presents for evaluation of one month of atraumatic right elbow pain without systemic symptoms Past History - Past Medical History Allergies/Adverse Reactions: Allergies Allergy/AdvReac Type Severity Reaction Status Date / Time aspirin Allergy Intermediate Hives Verified 05/13/19 19:05 Home Medications: Ambulatory Orders Cephalexin [Keflex] 500 mg PO Q12H 7 Days #14 capsule 11/18/18 Elviteg/Cob/Emtri/Tenof Alafen [Genvoya (Non-Formulary)] 11/18/18 Latanoprost 1 drop OU HS 11/18/18 Latanoprost 0.005% Eye Drops [Xalatan 0.005% Eye Drops -] 1 drop OU HS drops Pilocarpine 1% [Pilostat 1% -] 1 drop OU HS drops 11/18/18 Ibuprofen [Motrin -] 600 mg PO TID #30 tablet 05/13/19 COPD: No - Suicide/Smoking/Psychosocial Hx Smoking History: Never smoked Have you smoked in the past 12 months: No Information on smoking cessation initiated: No Hx Alcohol Use: No Drug/Substance Use Hx: No Substance Use Type: None Hx Substance Use Treatment: No Review of Systems - Review of Systems Constitutional: No: Fever Musculoskeletal: Yes: Joint Pain *Physical Exam - Vital Signs Last Vital Signs Temp Pulse Resp BP Pulse Ox 98.2 F 72 16 143/90 99 05/13/19 19:05 05/13/19 19:05 05/13/19 19:05 05/13/19 19:05 05/13/19 19:05 - Physical Exam Comments: 05/13/19 19:22 Right elbow skin color and temperature are normal range of motion is full and nonpainful. There is tenderness at the lateral upper condyle exacerbated with resisted wrist flexion. No instability or gross sensory motor deficits neurovascular intact. Medical Decision Making - Medical Decision Making 05/13/19 19:22 discussed use of anti-inflammatories and a wrist splint for rest follow-up with orthopedic surgery patient is in agreement with the plan. For lateral epicondylitis. Pt has an ASA allergy but tolerated NSAIDS *DC/Admit/Observation/Transfer Diagnosis at time of Disposition: Elbow pain, left, Lateral epicondylitis of elbow - Discharge Dispostion Disposition: HOME Condition at time of disposition: Stable Decision to Admit order: No - Referrals Referrals: Emmett Ferris DO [Staff Physician] - - Patient Instructions Printed Discharge Instructions: Lateral Epicondylitis, DI for Lateral Epicondylitis (Tennis Elbow) Additional Instructions: Motrin as prescribed. One tablet 3 times a day with food. Discontinue the medication if it bothers her stomach. Please wear the wrist splint as directed he should wear it all day sleep and it and only remove it for hygiene. Follow- up with orthopedic surgery in 1-2 days without fail for further evaluation and treatment options and return to the emergency room should symptoms worsen. - Post Discharge Activity
== END 2019-05-13 19:46 | disposition home or self-care (01) ==
LOC: JERFT 18:58
DX: M25.521 Pain in right elbow (principal); M77.12 Lateral epicondylitis, left elbow
CPT/HCPCS: 99281-25

== ENCOUNTER 2019-12-06 11:39 | Emergency (ER) | payer OTHER ==
[2019-12-06 11:51] VITALS: BP 116/68; PULSE 103; TEMP 98.8; BMI 23.8
--- NOTE | 2019-12-06 12:33 | PDOC ---
History of Present Illness - General Chief Complaint: Cold Symptoms Stated Complaint: FEVER/COLD SYMPTOMS Time Seen by Provider: 12/06/19 12:30 History Source: Patient Exam Limitations: No Limitations - History of Present Illness Initial Comments: 12/06/19 13:44 Chief complaint: Flu symptoms Patient 49-year-old male with history of HIV, nondetectable levels as of last month who states that his partner got sick with flu symptoms on Sunday, he got sick yesterday and he was coughing a lot and now his back hurts and is running a fever. Patient complaining of body aches and back spasm. No shortness of breath, no vomiting or nausea. Patient took Tylenol last night. Patient is allergic to aspirin. patient is on antivirals. Patient's partner had fever, runny nose and cough and is getting better GENERAL/CONSTITUTIONAL: No fever, weakness. dizziness HEAD, EYES, EARS, NOSE AND THROAT: No change in vision. No ear pain or discharge. No sore throat. CARDIOVASCULAR: No chest pain RESPIRATORY: No shortness of breath +cough GASTROINTESTINAL: No pain, nausea, vomiting, diarrhea or constipation GENITOURINARY: No dysuria MUSCULOSKELETAL: No neck or back pain SKIN: No rash NEUROLOGIC: No headache, vertigo, loss of consciousness, or loss of sensation. GENERAL: The patient is awake, alert, and fully oriented, appears uncomfortable HEAD: Normal with no signs of trauma. EYES: Pupils equal, round and reactive to light, sclera anicteric, conjunctiva clear. ENT: pharynx: no erythema, no exudate, uvula midline NECK: supple CHEST: clear, nontender, rr ABD: soft, nontender BACK: no tenderness or signs of injury EXTREMITIES: Normal range of motion, no edema. NEUROLOGICAL: Normal speech, normal gait. SKIN: Warm, Dry Past History - Past Medical History Allergies/Adverse Reactions: Allergies Allergy/AdvReac Type Severity Reaction Status Date / Time aspirin Allergy Intermediate Hives Verified 05/13/19 19:05 Home Medications: Ambulatory Orders Cephalexin [Keflex] 500 mg PO Q12H 7 Days #14 capsule 11/18/18 Elviteg/Cob/Emtri/Tenof Alafen [Genvoya (Non-Formulary)] 11/18/18 Latanoprost 1 drop OU HS 11/18/18 Latanoprost 0.005% Eye Drops [Xalatan 0.005% Eye Drops -] 1 drop OU HS drops Pilocarpine 1% [Pilostat 1% -] 1 drop OU HS drops 11/18/18 Ibuprofen [Motrin -] 600 mg PO TID #30 tablet 05/13/19 Azithromycin [Zithromax -] 250 mg PO UTDICT #6 tab 12/06/19 COPD: No - Psycho Social/Smoking Cessation Hx Smoking History: Never smoked Have you smoked in the past 12 months: No Hx Alcohol Use: No Drug/Substance Use Hx: No Substance Use Type: None Hx Substance Use Treatment: No *Physical Exam - Vital Signs Last Vital Signs Temp Pulse Resp BP Pulse Ox 98.8 F 103 H 19 116/68 99 12/06/19 11:47 12/06/19 11:47 12/06/19 11:47 12/06/19 11:47 12/06/19 11:47 ED Treatment Course - LABORATORY CBC & Chemistry Diagram: 12/06/19 13:30 12/06/19 13:30 Medical Decision Making - Medical Decision Making 49-year-old male with HIV, on antivirals and undetectable levels as of last month with flulike symptoms, similar to his partner with runny nose, cough, fever and body aches. Partner got sick 2 days before him and is recovering well. Patient is also a patient here. Patient will get flu swab, Percocet and Tylenol for discomfort and reassessment 12/06/19 13:51 Patient also received Ativan given muscle pain and patient unable to get comfortable feeling back spasms, no numbness or incontinence. No injury. Patient just has pain when he moves. Flu negative, will get basic labs and hydrate and reassess. 12/06/19 16:44 Patient feels better, ate lunch, chest x-ray does not show obvious infiltrate with some increased markings, given symptoms and back pain will and history will give antibiotics Discharge - Discharge Information Problems reviewed: Yes Clinical Impression/Diagnosis: Flu-like symptoms, Cough Condition: Stable Disposition: HOME - Admission No - Additional Discharge Information Prescriptions: Azithromycin [Zithromax -] 250 mg PO UTDICT #6 tab - Follow up/Referral Referrals: ON STAFF,NOT [Primary Care Provider] - - Patient Discharge Instructions Additional Instructions: You need to drink lots of fluids, drink 2 to 3 L daily Take the Zithromax as directed Take Tylenol 650 mg every 4 hours or Motrin 600 mg every 6 hours for fever and pain Return to the nearest ER if short of breath, unable to swallow or feeling sicker Followup with your doctor in one to 2 days Follow-up on your kidney function, your creatinine was 1.5 prior to getting hydrated with 2 L of fluid - Post Discharge Activity Work/Back to School Note: Back to Work
[2019-12-06] MEDS ORDERED: ACETAMINOPHEN 325 MG TABLET (FP) ONE (12:38)
[2019-12-06] MEDS ORDERED: ACETAMINOPHEN 325 MG TABLET (FP) PO ONE (12:48)
[2019-12-06] MEDS ORDERED: LORazepam 1 MG TABLET PO ONE (13:17)
[2019-12-06] MEDS ORDERED: LORazepam 0.5 MG TABLET ONE (13:19)
[2019-12-06] MEDS ORDERED: SODIUM CHLORIDE 0.9% 500 ML INFUS.BAG IV ONE (13:27)
[2019-12-06 13:56] LABS: BASO % 0.3 % (0-2.0); EOS % 0.2 % (0-4.5); HEMOGLOBIN 12.4 GM/dL (11.7-16.9); LYMPH % 11.6 % (8-40); MCH 30.1 pg (25.7-33.7); MCHC 32.6 g/dl (32.0-35.9); MEAN CELL VOLUME 92.3 fl (80-96); MEAN PLT VOLUME 8.6 fl (7.5-11.1); MONO % 9.8 % (3.8-10.2); NEUT % 78.1 % (42.8-82.8); PLATELET COUNT 136 K/MM3 (134-434); RBC 4.12 M/mm3 (4.00-5.60); RDW 13.4 % (11.9-15.9); WHITE BLOOD COUNT 5.9 K/mm3 (4.0-10.0)
[2019-12-06] MEDS ORDERED: SODIUM CHLORIDE 1,000 ML IV STA (14:07)
[2019-12-06 14:42] LABS: BLOOD UREA NITROGEN 16.6 mg/dL (7-18); CALCIUM 8.8 mg/dL (8.5-10.1); CREATININE 1.5 mg/dL (0.55-1.3)
== END 2019-12-06 17:04 | disposition home or self-care (01) ==
LOC: JERFT 11:39 → JER 11:39 → JERFT 17:04
PROC: 3E0337Z Introduction of Electrolytic and Water Balance Substance into Peripheral Vein, Percutaneous Approach (ICD-10-PCS; principal; 2019-12-06)
DX: J11.1 Influenza due to unidentified influenza virus with other respiratory manifestations (principal); Z21 Asymptomatic human immunodeficiency virus [HIV] infection status; Z88.6 Allergy status to analgesic agent
CPT/HCPCS: 36415; 71046-TC-FY; 80048; 85025; 87804; 96360; 99282-25; J7030

== ENCOUNTER 2019-12-15 08:54 | Day surgery (SDC) | payer OTHER ==
[2019-12-11 16:24] VITALS: BMI 23.8
[2019-12-15 10:19] VITALS: TEMP 98.4
[2019-12-15] MEDS ORDERED: PROPOFOL 20 ML ONE ×2 (13:09)
[2019-12-15] MEDS ORDERED: ONDANSETRON 4 MG/2 ML VIAL IVPUSH PRN (13:18)
[2019-12-15] MEDS ORDERED: oxyCODONE HCL 5 MG TABLET PO PRN (13:18)
[2019-12-15] MEDS ORDERED: LACTATED RINGERS SOLUTION 1,000 ML IV SCH (13:30)
--- NOTE | 2019-12-15 14:10 | OP ---
Operative Note - Note: Operative Date: 12/15/19 Pre-Operative Diagnosis: LEFT RENAL STONE Operation: Left ESWL Findings: 5 mm mid pole Left renal stone Surgeon: Josh Perez Anesthesia: Fractional Estimated Blood Loss (mls): 0 Operative Report Dictated: Yes
[2019-12-15 15:12] VITALS: BP 121/77; PULSE 62
--- NOTE | 2019-12-16 13:52 | OP ---
DATE OF OPERATION: 12/15/2019 PREOPERATIVE DIAGNOSIS: Left renal stone. POSTOPERATIVE DIAGNOSIS: Left renal stone. PROCEDURE: Left extracorporeal shock-wave lithotripsy. ATTENDING: Soren Urena MD ANESTHESIA: Fractional. DESCRIPTION OF PROCEDURE: Patient was brought in the operating room. Placed in a supine position on the operating room table. Ultrasonography and fluoroscopy were performed. A 5-mm left mid pole stone was identified. Anesthesia and preoperative antibiotics were administered. Shock-wave lithotripsy was then performed; 2500 impulses at 17 joules of power were administered to the stone with excellent fragmentation of the stone noted under real time ultrasonography and fluoroscopy. No complications were noted. The patient tolerated the procedure very well. SOREN URENA M.D. [id number]
== END 2019-12-15 15:15 | disposition home or self-care (01) ==
LOC: JASU-SURG 08:54
PROVIDERS: ATTEND Urology
PROC: 0TF4XZZ Fragmentation in Left Kidney Pelvis, External Approach (ICD-10-PCS; principal; 2019-12-15 11:45)
DX: N20.0 Calculus of kidney (principal)